=== PATIENT | male | born 1960 | race Caucasian/White ===

== ENCOUNTER 2025-02-06 12:11 | Inpatient (IN) | payer MEDICARE, OTHER ==
[~2025-02-06] VITALS: Ht 160 cm; Wt 51.7 kg
[~2025-02-06 12:11] MED LIST: ATOR10TA PO; DICL25CA6 PO; PROT20 MT; TOPUD PO
[2025-02-06 13:03] LABS: BASOPHILS % 0.5 % (0.0-2.0); EOSINOPHILS % 1.9 % (0.0-5.0); HEMATOCRIT. 27.5 % (42.0-52.0); HEMOGLOBIN. 8.7 g/dL (14.0-18.0); LYMPHOCYTES % 21.9 % (20.0-50.0); MEAN CORPUSCULAR HEMOGLOBIN 23.7 pg (28.0-32.0); MEAN CORPUSCULAR HGB CONC 31.5 g/dL (31.0-37.0); MEAN CORPUSCULAR VOLUME 75.1 fL (80.0-94.0); MEAN PLATELET VOLUME 6.6 fl (7.4-10.4); MONOCYTES % 10.3 % (2.0-8.0); NEUTROPHILS % 65.4 % (40.0-76.0); PLATELET 398 x1000/uL (130-400); RED BLOOD CELL COUNT 3.66 mill/uL (4.7-6.1); RED CELL DISTRIBUTION WIDTH 26.5 % (11.6-14.6); WHITE BLOOD COUNT 10.8 x1000/uL (4.5-11.0)
[2025-02-06] MEDS: PIPERACILLIN/TAZO 3.375G/50ML 50 ML IV ONE (13:06)
[2025-02-06] MEDS: SODIUM CHLORIDE 0.9% (SEPSIS BOLUS) IV ONE (13:06)
[2025-02-06 13:11] LABS: CARBON DIOXIDE 26 mEq/L (21-32); CHLORIDE 100 mEq/L (98-107); DIFFERENTIAL COMMENT 1; POTASSIUM 4.7 mEq/L (3.5-5.1); SODIUM 134 mEq/L (136-145)
[2025-02-06 13:12] LABS: ADD RBC MORPHOLOGY YES; CALCIUM 8.7 mg/dL (8.7-10.4); INR 1.1; PROTHROMBIN TIME 11.3 sec (9.6-11.0)
[2025-02-06 13:17] LABS: CREATININE 1.3 mg/dL (0.6-1.3); GLUCOSE 248 mg/dL (70-105); TROPONIN I HIGH SENSITIVITY 7 ng/L (3.0-53); UREA NITROGEN BLOOD 26 mg/dL (9-23)
[2025-02-06 13:18] LABS: ALANINE AMINOTRANSFERASE 53 IU/L (10-49); ASPARTATE AMINOTRANSFERASE 57 IU/L (<34)
[2025-02-06 13:19] LABS: ALBUMIN 3.3 g/dL (3.2-4.8); BILIRUBIN DIRECT 0.4 mg/dL (<=3.0); BILIRUBIN TOTAL 0.7 mg/dL (0.1-1.0); PROTEIN TOTAL 6.3 g/dL (6.0-8.3)
[2025-02-06 13:43] LABS: ANISOCYTOSIS 3+; MICROCYTOSIS 2+; PLATELET ESTIMATE NORMAL
[2025-02-06] MEDS ORDERED: ACETAMINOPHEN 325MG TABLET PO PRN ×2 (16:30)
[2025-02-06] MEDS ORDERED: GUAIFENESIN 200MG/10ML SUGAR FREE UDC PO PRN (16:30)
[2025-02-06] MEDS ORDERED: DOCUSATE SODIUM 100MG CAPSULE PO PRN (16:30)
[2025-02-06] MEDS ORDERED: CLONIDINE 0.1MG TABLET PO PRN (16:30)
[2025-02-06] MEDS ORDERED: IPRATROPIUM/ALBUTEROL 0.5-3(2.5)MG/3ML NEB HHN PRN (16:30)
[2025-02-06] MEDS ORDERED: MAGNESIUM/ALUMINUM HYDROXIDE/SIMETHICONE 30ML UDC PO PRN (16:30)
[2025-02-06] MEDS ORDERED: ONDANSETRON HCL 4MG/2ML INJ IV PRN (16:30)
[2025-02-06 16:46] LABS: CLARITY URINE CLEAR (CLEAR); COLOR URINE YELLOW (YELLOW); GLUCOSE URINE NEGATIVE (NEGATIVE); KETONES URINE NEGATIVE (NEGATIVE); LEUKOCYTE ESTERASE URINE NEGATIVE (NEGATIVE); NITRITE URINE NEGATIVE (NEGATIVE); OCCULT BLOOD URINE NEGATIVE (NEGATIVE); PH URINE 6.5 (4.5-8.0); PROTEIN URINE NEGATIVE (NEGATIVE); SPECIFIC GRAVITY URINE 1.008 (1.005-1.030)
[2025-02-06] MEDS: ENOXAPARIN 40MG/0.4ML SYR SUBCUT SCH (17:30)
[2025-02-06] MEDS ORDERED: DEXTROSE 50% WATER 50ML SYRINGE IV PRN (18:00)
[2025-02-06 18:16] VITALS: BP 142/71; PULSE 96; RESP 23; TEMP 37; O2SAT 96
[2025-02-06 18:20] VITALS: BP 142/71; PULSE 96; RESP 23; TEMP 37
[2025-02-06 20:00] VITALS: BP 125/63; PULSE 86; RESP 20; TEMP 36.4; O2SAT 97
[2025-02-06] MEDS: BLOOD SUGAR DIAGNOSTIC STRIP TEST SCH (21:00)
[2025-02-06] MEDS: SODIUM CHLORIDE 0.9% 100 ML IV ONE (22:30)
[2025-02-07] VITALS: BP 124/50; PULSE 78; RESP 18; TEMP 36.7; O2SAT 94
[2025-02-07 04:00] VITALS: BP 138/67; PULSE 81; RESP 20; TEMP 36.8; O2SAT 96
[2025-02-07 06:16] LABS: CHLORIDE 106 mEq/L (98-107); POTASSIUM 4.3 mEq/L (3.5-5.1); SODIUM 142 mEq/L (136-145)
[2025-02-07 06:17] LABS: CARBON DIOXIDE 27 mEq/L (21-32)
[2025-02-07 06:18] LABS: CALCIUM 8.7 mg/dL (8.7-10.4)
[2025-02-07 06:19] LABS: BASOPHILS % 0.5 % (0.0-2.0); EOSINOPHILS % 5.1 % (0.0-5.0); HEMATOCRIT. 25.9 % (42.0-52.0); HEMOGLOBIN. 8.5 g/dL (14.0-18.0); MEAN CORPUSCULAR HEMOGLOBIN 24.4 pg (28.0-32.0); MEAN CORPUSCULAR HGB CONC 32.7 g/dL (31.0-37.0); MEAN CORPUSCULAR VOLUME 74.7 fL (80.0-94.0); MEAN PLATELET VOLUME 6.9 fl (7.4-10.4); MONOCYTES % 10.6 % (2.0-8.0); NEUTROPHILS % 50.8 % (40.0-76.0); PLATELET 384 x1000/uL (130-400); RED BLOOD CELL COUNT 3.46 mill/uL (4.7-6.1); RED CELL DISTRIBUTION WIDTH 26.8 % (11.6-14.6); WHITE BLOOD COUNT 8.9 x1000/uL (4.5-11.0)
[2025-02-07 06:22] LABS: CREATININE 0.8 mg/dL (0.6-1.3)
[2025-02-07 06:23] LABS: UREA NITROGEN BLOOD 15 mg/dL (9-23)
[2025-02-07 06:36] LABS: DIFFERENTIAL COMMENT 1
[2025-02-07 06:58] LABS: GLUCOSE 67 mg/dL (70-105)
[2025-02-07] MEDS: DEXT 5%/0.45% NACL 1000ML 1,000 ML IV SCH (07:45)
[2025-02-07 08:00] VITALS: BP 28/62; PULSE 71; RESP 18; TEMP 36.7; O2SAT 98
[2025-02-07] MEDS: PANTOPRAZOLE SODIUM 40 MG/VIAL IV SCH (09:00)
[2025-02-07 09:45] LABS: PHOSPHORUS 3.2 mg/dL (2.5-4.9)
[2025-02-07 12:00] VITALS: BP 136/77; PULSE 74; RESP 19; TEMP 36.7; O2SAT 99
[2025-02-07] MEDS: MAGNESIUM 2 G PREMIX 50 ML IV NR (14:48)
[2025-02-07] MEDS: MEGESTROL ACETATE 400 MG/10 ML UDC PO SCH (14:48)
[2025-02-07 16:00] VITALS: BP 130/77; PULSE 80; RESP 25; TEMP 36.7; O2SAT 99
[2025-02-07 17:43] LABS: IRON 19 ug/dL (65-175)
[2025-02-07] MEDS ORDERED: DEXTROSE 50% WATER 50ML SYRINGE IV PRN (17:45)
[2025-02-07 17:46] LABS: TOTAL IRON BINDING CAPACITY 276 ug/dl (250-425)
[2025-02-07 17:48] LABS: FERRITIN 623 ng/mL (22-322)
[2025-02-07 17:49] LABS: VITAMIN B12 SERUM 594 pg/mL (211-911)
[2025-02-07] MEDS: INSULIN LISPRO 100 UNITS/ML SUBCUT NR (17:57)
[2025-02-07 20:00] VITALS: BP 115/64; PULSE 81; RESP 25; TEMP 36.9; O2SAT 99
[2025-02-07] MEDS: INSULIN LISPRO 100 UNITS/ML SUBCUT SCH (21:32)
[2025-02-08] VITALS: BP 145/65; PULSE 83; RESP 23; TEMP 36.8; O2SAT 92
[2025-02-08 04:00] VITALS: BP 129/66; PULSE 65; RESP 19; TEMP 36.6; O2SAT 96
[2025-02-08 08:00] VITALS: BP 137/67; PULSE 86; RESP 22; TEMP 36.6; O2SAT 95
[2025-02-08] MEDS: FERROUS SULFATE 325MG TABLET PO SCH (08:02)
[2025-02-08] MEDS ORDERED: FERR-63 PO (10:27)
[2025-02-08] MEDS ORDERED: MEGE400O46 PO (10:27)
[2025-02-08 12:00] VITALS: BP 117/62; PULSE 79; RESP 27; TEMP 36.6; O2SAT 98
[2025-02-08 13:31] VITALS: BP 117/62; PULSE 99; TEMP 97.8; O2SAT 100
== END 2025-02-08 14:15 | disposition home or self-care (01) | DRG 314 ==
LOC: ER 12:11 → 3WST 14:43 → EDBEDREQ 14:51 → EDBEDREQTM 14:51 → EDBEDREQSVC 16:54
PROVIDERS: ADMIT Internal Medicine; ATTEND Internal Medicine
DX: I95.9 Hypotension, unspecified (principal); J18.9 Pneumonia, unspecified organism; J98.11 Atelectasis; N17.9 Acute kidney failure, unspecified; J91.8 Pleural effusion in other conditions classified elsewhere; D50.9 Iron deficiency anemia, unspecified; E11.65 Type 2 diabetes mellitus with hyperglycemia; E78.00 Pure hypercholesterolemia, unspecified; F20.9 Schizophrenia, unspecified; Z60.3 Acculturation difficulty; E05.90 Thyrotoxicosis, unspecified without thyrotoxic crisis or storm; F32.A Depression, unspecified; F41.9 Anxiety disorder, unspecified; K21.9 Gastro-esophageal reflux disease without esophagitis; K59.09 Other constipation; R74.01 Elevation of levels of liver transaminase levels; E11.22 Type 2 diabetes mellitus with diabetic chronic kidney disease; N18.9 Chronic kidney disease, unspecified; D63.8 Anemia in other chronic diseases classified elsewhere; Z79.899 Other long term (current) drug therapy; Z88.0 Allergy status to penicillin; Z90.3 Acquired absence of stomach [part of]
CPT/HCPCS: 36415; 71045; 74176; 76604; 80048; 80076; 81003; 82607; 82728; 82746; 82962; 83540; 83550; 83605; 83735; 84100; 84145; 84484; 85025; 86850; 86900; 93005; 96365; 99291; A4606; J1650; J1815; J2470; J2543; J3475; J7030